=== PATIENT | female | born 1950 | race Caucasian/White ===

== ENCOUNTER 2017-09-11 11:31 | Inpatient (IN) ==
[2017-09-11] MEDS ORDERED: DILTIAZEM 50 MG/10 ML VIAL IV STA (12:51)
[2017-09-11] MEDS ORDERED: ENOXAPARIN 100 MG/ML SYRINGE SUBCUT STA (12:51)
[2017-09-11] MEDS ORDERED: DILTIAZEM 100 MG VIAL.ADD IV ONE (13:25)
[2017-09-11] MEDS ORDERED: DILTIAZEM 50 MG/10 ML VIAL IV ONE (13:25)
[2017-09-11] MEDS ORDERED: ENOXAPARIN 100 MG/ML SYRINGE SUBCUT ONE (13:25)
[2017-09-11 13:29] LABS: Basophils # 0.1 10*3/uL (0.0-0.2); Basophils % 0.7 % (0.0-0.8); Eosinophils % 0.4 % (0.00-10.9); Hematocrit 45.2 VOL% (35.7-47.0); Hemoglobin 15.4 GM/DL (12.0-16.0); Immature Granulocytes % 0.3 %; Immature Granulocytes Absolute 0.02 #; Lymphocytes # 1.7 10*3/uL (1.4-4.0); Lymphocytes % 23.7 % (21.3-54.2); Mean Corpuscular HGB Conc 34.1 GM/DL (32-36); Mean Corpuscular Hemoglobin 32 PG (27-34); Mean Corpuscular Volume 92.6 FL (87-102); Mean Platelet Volume 12.1 FL (9.6-12.0); Monocytes # 0.5 10*3/uL (0.11-0.8); Monocytes % 6.5 % (1.7-12.7); Neutrophils # 4.9 10*3/uL (1.4-7.4); Neutrophils % 68.4 % (38.7-73.9); Platelet Count 202 T/CUMM (130-400); Red Blood Count 4.88 MC/CUMM (3.8-5.5); Red Cell Distribution Width 12.3 % (9.3-17.3); White Blood Count 7.1 T/CUMM (4-12)
[2017-09-11] MEDS: DILTIAZEM INJ 100 MG in SODIUM CHLORIDE 0.9% 100 ML IV SCH ×2 (13:38→22:20)
[2017-09-11 13:39] LABS: Barbiturates Screen,Urine Negative (Negative); Benzodiazepines Screen,Urine Negative (Negative); Cannabinoid Screen,Urine Negative (Negative); Opiate Screen,Urine Negative (Negative); Phencyclidine Screen,Urine Negative (Negative)
[2017-09-11 13:51] LABS: INR 1.1; PT Patient Result 11.3 SECS
[2017-09-11 14:00] LABS: Alanine Aminotransferase 29 U/L (13-56); Albumin 4.3 G/DL (3.4-5.0); Alkaline Phosphatase 81 U/L (45-117); Aspartate Amino Transferase 32 U/L (0-37); Blood Urea Nitrogen 11 MG/DL (7-18); Calcium 9.4 MG/DL (8.5-10.1); Glucose 115 MG/DL (74-106); Osmolality,Calculated 282.1 MOS/KG (273-304); Potassium 3.7 MMOL/L (3.5-5.1); Sodium 142 MMOL/L (136-145); Total Protein 7.6 G/DL (6.4-8.3); Troponin I Only < 0.015 NG/ML (0.00-0.045)
[2017-09-11] MEDS ORDERED: ACETAMINOPHEN 325 MG TABLET PO PRN (17:44)
[2017-09-11] MEDS ORDERED: ONDANSETRON 4 MG/2 ML VIAL IV PRN (17:44)
[2017-09-11] MEDS ORDERED: SODIUM CHLORIDE 0.9% 1,000 ML IV SCH (17:44)
[2017-09-11] MEDS: DOCUSATE SODIUM 100 MG CAPSULE PO SCH (20:55)
[2017-09-12 04:49] LABS: Basophils # 0.1 10*3/uL (0.0-0.2); Basophils % 0.9 % (0.0-0.8); Eosinophils # 0.1 10*3/uL (0.0-0.87); Eosinophils % 1.3 % (0.00-10.9); Hematocrit 38.8 VOL% (35.7-47.0); Hemoglobin 13.4 GM/DL (12.0-16.0); Lymphocytes # 2.8 10*3/uL (1.4-4.0); Lymphocytes % 52.6 % (21.3-54.2); Mean Corpuscular HGB Conc 34.5 GM/DL (32-36); Mean Corpuscular Hemoglobin 32 PG (27-34); Mean Corpuscular Volume 92.6 FL (87-102); Mean Platelet Volume 12.7 FL (9.6-12.0); Monocytes # 0.6 10*3/uL (0.11-0.8); Monocytes % 10.6 % (1.7-12.7); Neutrophils # 1.8 10*3/uL (1.4-7.4); Neutrophils % 34.6 % (38.7-73.9); Platelet Count 175 T/CUMM (130-400); Red Blood Count 4.19 MC/CUMM (3.8-5.5); Red Cell Distribution Width 12.5 % (9.3-17.3); White Blood Count 5.3 T/CUMM (4-12)
[2017-09-12 05:16] LABS: Eosinophils 2 % (0-10); Giant Platelets Few; Hypochromasia 1+; Lymphocytes 44 % (20-55); Ovalocytes Slight; Platelet Estimate Adequate; Segmented Neutrophils 44 % (50-85); Total Cells Counted 100
[2017-09-12 05:17] LABS: Calcium 8.8 MG/DL (8.5-10.1); Magnesium 2.1 MG/DL (1.8-2.4); Osmolality,Calculated 288.6 MOS/KG (273-304); Potassium 3.7 MMOL/L (3.5-5.1)
[2017-09-12] MEDS ORDERED: PANTOPRAZOLE 40 MG TABLET PO SCH (09:00)
[2017-09-12] MEDS ORDERED: METOPROLOL SUCCINATE XL 25 MG TABLET PO SCH (09:00)
[2017-09-12] MEDS ORDERED: APIXABAN 5 MG TABLET PO SCH (09:00)
[2017-09-12] MEDS ORDERED: amLODIPine 5 MG TABLET PO SCH (09:00)
[2017-09-12] MEDS: DOCUSATE SODIUM 100 MG CAPSULE PO SCH (09:25)
[2017-09-12] MEDS ORDERED: METOPROLOL SUCCINATE XL 50 MG TABLET PO SCH (10:40)
[2017-09-12] MEDS ORDERED: FUROSEMIDE 20 MG TABLET PO SCH (11:30)
[2017-09-12 11:39] VITALS: BP 123/69
== END 2017-09-12 14:38 | disposition home or self-care (01) | DRG 310 ==
LOC: N.ED 11:31 → N.EDINP 14:18 → N.TELES 17:08
PROVIDERS: ADMIT Family Medicine; ATTEND Family Medicine